=== PATIENT | female | born 1965 | race Caucasian/White ===

== ENCOUNTER 2016-06-12 15:50 | Outpatient (CLI) ==
[2016-06-12 17:01] LABS: BASOPHILS % (AUTO) 0.5 % (0.0-3.0); EOSINOPHILS # (AUTO) 0.1 K/ul (0.0-0.7); HEMATOCRIT 39.6 % (37.0-47.0); HEMOGLOBIN 13.6 g/dl (12.0-16.0); IMMATURE GRANULOCYTE % (AUTO) 0.2 % (0.0-5.0); LYMPHOCYTES # (AUTO) 0.8 K/uL (0.60-3.4); LYMPHOCYTES % (AUTO) 13.9 (10.0-50.0); MEAN CORPUSCULAR HGB CONC 34.3 (31.8-35.4); MEAN CORPUSCULAR VOLUME 84.4 fl (81.0-99.0); MONOCYTES # (AUTO) 0.4 K/uL (0.4-2.0); NEUTROPHILS # (AUTO) 4.1 K/ul (2.0-6.9); NEUTROPHILS % (AUTO) 75.4; PLATELET COUNT 222 10^3/uL (140-440); RED BLOOD COUNT 4.69 10^6/ul (4.20-5.40); WHITE BLOOD COUNT 5.48 K/ul (4.6-10.2)
[2016-06-12 17:11] LABS: FLU INTERNAL QC INTERNAL QC VALID
[2016-06-12 17:12] LABS: RAPID FLU A POSITIVE (NEGATIVE); RAPID FLU B NEGATIVE (NEGATIVE)
[2016-06-12 17:14] LABS: ALBUMIN 4.1 g/dL (3.4-5.0); ALBUMIN/GLOBULIN RATIO 0.95; ANION GAP 14.6; BILIRUBIN,TOTAL 0.46 mg/dL (0.00-1.20); BUN/CREATININE RATIO 16.21; CALCIUM 9.2 mg/dL (8.2-10.2); CHOL/HDL RATIO 5.9 (4.5-5.5); CREATININE 0.74 mg/dL (0.60-1.30); POTASSIUM 3.6 mmol/L (3.5-5.10); TOTAL PROTEIN 8.4 g/dL (6.4-8.2)
== END 2016-06-12 15:51 | disposition home or self-care (01) ==
LOC: LAB 15:50
PROVIDERS: ATTEND Nurse Practitioner Family
DX: J02.9 Acute pharyngitis, unspecified (principal); R52 Pain, unspecified; I10 Essential (primary) hypertension; E78.5 Hyperlipidemia, unspecified; E78.1 Pure hyperglyceridemia; E11.9 Type 2 diabetes mellitus without complications
CPT/HCPCS: 36415; 80053; 80061; 83036; 85025; 87651; 87804; 87880

== ENCOUNTER 2017-02-15 12:24 | Outpatient (CLI) ==
[2017-02-15 13:24] LABS: ALBUMIN 3.6 g/dL (3.4-5.0); ALBUMIN/GLOBULIN RATIO 0.88; ANION GAP 12.6; BILIRUBIN,TOTAL 0.62 mg/dL (0.00-1.20); BUN/CREATININE RATIO 17.14; CALCIUM 9.3 mg/dL (8.2-10.2); CHOL/HDL RATIO 5.6 (4.5-5.5); CREATININE 0.7 mg/dL (0.60-1.30); POTASSIUM 3.6 mmol/L (3.5-5.10); TOTAL PROTEIN 7.7 g/dL (6.4-8.2)
== END 2017-02-15 12:25 | disposition home or self-care (01) ==
LOC: LAB 12:24
PROVIDERS: ATTEND Nurse Practitioner Family
DX: Z00.00 Encounter for general adult medical examination without abnormal findings (principal); E11.9 Type 2 diabetes mellitus without complications; I10 Essential (primary) hypertension; E78.1 Pure hyperglyceridemia; E78.5 Hyperlipidemia, unspecified
CPT/HCPCS: 36415; 80053; 80061; 83036; 84443

== ENCOUNTER 2017-05-20 13:05 | Outpatient (CLI) | END 2017-05-20 13:06 | disposition home or self-care (01) | LOC: LAB 13:05 | PROVIDERS: ATTEND Nurse Practitioner Family | DX: E11.9 Type 2 diabetes mellitus without complications (principal); I10 Essential (primary) hypertension; E78.1 Pure hyperglyceridemia; E78.5 Hyperlipidemia, unspecified | CPT/HCPCS: 36415; 80053; 80061; 83036 ==

== ENCOUNTER 2017-07-17 11:20 | Outpatient (CLI) ==
--- NOTE | 2017-07-17 13:02 | CT ---
Exam: CT abdomen pelvis without intravenous contrast. Comparison: 05/02/2009. Reason for exam: Generalized abdominal pain. FINDINGS: No pleural effusion, or focal consolidation in the partially imaged lung bases. There is mild ground-glass in the left lung base. Image interpretation is limited by the lack of intravenous contrast administration. The liver is lower in attenuation in the spleen. The gallbladder, spleen, pancreas, and adrenal glands appear grossly unremarkable within limitations of a noncontrasted study. No hydronephrosis, hydroureter, or nephrolithiasis is seen in either kidney. The bladder is incompletely evaluated secondary to non distension without obvious wall thickening. No focal small bowel dilatation or transition point. Fluid-filled loops of small bowel are seen throughout the abdomen. The appendix is not definitively seen. No inflammatory changes are seen in the expected location of the appendix. No intra-abdominal free air or pelvic free fluid. There is minimal atherosclerotic disease in the aorta. The pelvic structures appear grossly unremarkable. Degenerative disease is seen in the lumbosacral spine with intervertebral body disc space height narr owing and straightening of the lumbar lordotic curve. Impression: 1. No acute inflammatory findings are seen within the abdomen or pelvis. 2. Hepatic steatosis. 3. The previously described hepatic lesion is not well seen on the noncontrasted evaluation. 4. Fluid-filled loops of nondilated small bowel may be physiologic but may also represent a mild ent eritis.
== END 2017-07-17 11:21 | disposition home or self-care (01) ==
LOC: RAD 11:20
PROVIDERS: ATTEND Emergency Medicine
DX: R10.84 Generalized abdominal pain (principal); K52.9 Noninfective gastroenteritis and colitis, unspecified
CPT/HCPCS: 36415; 80053; 85025

== ENCOUNTER 2017-09-13 12:35 | Outpatient (CLI) | END 2017-09-13 12:36 | disposition home or self-care (01) | LOC: LAB 12:35 | PROVIDERS: ATTEND Nurse Practitioner Family | DX: E11.9 Type 2 diabetes mellitus without complications (principal); I10 Essential (primary) hypertension; E78.5 Hyperlipidemia, unspecified; E78.1 Pure hyperglyceridemia | CPT/HCPCS: 36415; 80053; 80061; 83036; 85025 ==

== ENCOUNTER 2018-02-01 11:02 | Outpatient (CLI) | END 2018-02-01 11:03 | disposition home or self-care (01) | LOC: LAB 11:02 | PROVIDERS: ATTEND Nurse Practitioner Family | DX: E78.1 Pure hyperglyceridemia (principal); E11.9 Type 2 diabetes mellitus without complications | CPT/HCPCS: 36415; 80053; 80061; 83036 ==

== ENCOUNTER 2018-04-25 14:59 | Outpatient (CLI) ==
--- NOTE | 2018-04-26 08:55 | MRI ---
EXAM: MRI of the right elbow without contrast COMPARISON: Right elbow radiographs 03/31/2018. HISTORY: Elbow pain following a fall a few months ago. TECHNIQUE: Multiplanar noncontrast MR images of the right elbow were acquired using a 1.2 Susan magn et. FINDINGS: Mild to moderate degenerative changes of the radiocapitellar and ulnohumeral articulations . There is mild chronic deformity of the articular surface of the radial head, favoring sequela of o ld trauma without evidence of an acute fracture at that site. There is a small elbow effusion withou t a definite osteochondral body. Moderate triceps tendinosis with some edema throughout the overlying soft tissues though without a fu ll-thickness tendon tear or tendon retraction. Mild to moderate biceps tendinosis without a tendon t ear. The distal brachialis tendon is intact. There is marked common extensor tendinosis with a partial-thickness tear involving the common extenso r tendon at its lateral epicondyle attachment with some edema throughout the overlying soft tissues. Strain/contusion of the common extensor muscle wad posteriorly. Small lateral epicondyle bone spur. There is a mild common flexor tendinosis with minimal edema throughout the overlying soft tissues wit hout a full-thickness tendon tear. Low grade strain/contusion of the common flexor muscle wad fundraising sale representative iorly and proximally. The ulnar nerve is located within the cubital tunnel and is grossly unremarkab le appearance. Subcutaneous edema posteriorly without a drainable fluid collection. There is scarring of the lateral collateral ligament proximally its humeral attachment suggesting seq uela of a chronic sprain/partial tear without a full-thickness tear on this non arthrographic study. No evidence of a full-thickness tear of the ulnar collateral ligament on this non arthrographic stud y. Mild diffuse muscle atrophy. IMPRESSION: 1. Mild chronic deformity of the radial head, favoring sequela of old trauma without acute fracture at that site. Mild to moderate osteoarthrosis. Small elbow effusion, nonspecific. 2. Distal triceps and biceps tendinosis without a full-thickness tendon tear or tendon retraction. Subcutaneous edema posteriorly. Mild muscle atrophy. 3. Lateral epicondylitis with marked tendinosis with partial tear of the common extensor tendon at i ts lateral epicondyle attachment related to acute on chronic changes of the lateral epicondylitis. E denise throughout the overlying soft tissues without a full-thickness tendon tear. 4. Minimal changes of medial epicondylitis without a tendon tear. 5. Chronic sprain/partial tear with scarring of the radial collateral ligament without a full-thickn ess tear on this non arthrographic study.
== END 2018-04-25 15:00 | disposition home or self-care (01) ==
LOC: RAD 14:59
PROVIDERS: ATTEND Nurse Practitioner Family
DX: M25.521 Pain in right elbow (principal); G89.29 Other chronic pain; Z98.890 Other specified postprocedural states; W19.XXXA Unspecified fall, initial encounter

== ENCOUNTER 2018-06-02 09:58 | Outpatient (RCR) ==
--- NOTE | 2018-06-02 14:16 | RS.OPPTEV2 ---
Date of Note: 06/02/18 Visit #: 1 Number of visits approved by Insurance: n/a Date of Evaluation: 06/02/18 Payer Source: Insurance Surgery Performed?: No Treatment Diagnosis: lateral epicondylitis R elbow History of Condition/Mechanism of Injury:: pt states she suffered a fall striking her R elbow on concrete sidewalk in 08/2017. States she has had pain ever since. Reports she got a band to wear for lat epicondylitis and it has helped her be able to function. 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 States without wearing her band she cannot even pull covers up on her at night using R hand. Treatment Side (optional): Right *Precautions: n/a Medical History Medical History: Hypertension, Diabetes, Arthritis Surgical History Comments:: thyroid tumor removed, tubal ligation Smoking Status: Never smoker Hx Home Medications: januvia, metformin, hyzar Patient's Goals: decrease pain Pain Assessment - Pain Description Pain Location: R lat elbow Pain Description: Burning, Sharp, Throbbing Current Pain Intensity: 2 Worst Pain Intensity: 7 Functional Outcome Measure UE Functional Index: 45 (44%) - G Codes & Severity Modifier G Codes & Modifier: n/a Source of G Code score: n/a Observation - Observation Inspection: pt with slight edema noted in R lat elbow in area of lat epicondyle Posture: Forward Head, Rounded Shoulders, Increased Thoracic Kyphosis Handedness: Right Gait - Gait Pattern General Gait Pattern Observation: No Deviations/Normal General Range of Motion: LUE WFL's. BLE WFL's. RUE WFL's with pain with R elbow ROM Muscle Strength: LUE 5/5. BLE 5/5. RUE shld flex 5/5, elbow (see elbow eval) Elbow ROM: Bilaterally WFL's Elbow Muscle Strength: Left WFL's - Right Elbow Strength Right Elbow Extension: 4- Good- Right Elbow Flexion: 4 Good Right Forearm Pronation: 4- Good- Right Forearm Supination: 4- Good- Sky Line Yarder Strength Left Hand Sky Line Yarder Strength: 46# Right Hand Sky Line Yarder Strength: 27# Dynamometer Testing Position: 3rd Position Palpation Palpation Findings: Tenderness Comments:: tenderness to palpation R lat elbow over lat epicondyle Sensation - Sensation Right Upper Extremity: Intact/Normal Left Upper Extremity: Intact/Normal Right Lower Extremity: Intact/Normal Left Lower Extremity: Intact/Normal Balance - Sitting Balance Static Sitting Balance: Normal Dynamic Sitting Balance: Normal - Standing Balance Static Standing Balance: Normal Dynamic Standing Balance: Normal - Heat/Cryotherapy Treatment: Cryotherapy Comments:: R elbow Interventions - Exercise/Activities/Manual Therapy Exercises/Activities: pt performed wrist flex stretch, wrist ext stretch, forearm pronation/supination, wrist flex with weight, elbow flex/ext Manual Therapy: n/a HOME EXERCISE PROGRAM: pt given written HEP including wrist flex stretch, wrist ext stretch, forearm pronation/supination, wrist flex/ext with weight, elbow flex/ext. - Charges Timed Code Treatment Minutes: 48 Total Treatment Time: 53 Procedures billed for this date of service:: eval low ex EVALUATION COMPLEXITY LEVEL EVALUATION COMPLEXITY LEVEL: HISTORY: Low, EXAM OF BODY SYSTEMS: Low, CLINICAL PRESENTATION: Low, CLINICAL DECISION MAKING: Low Assessment Assessment: pt presents with lat epicondylitis R elbow. pt with swelling R elbow and pain with ROM. Decreased strength R elbow and hand. Patient Education: Home Exercise Program, Education of Plan of Care Rehab Potential: Good Hemodialysis Charge Nurse Goals Goal #1: pt independent with HEP Goal to be met by: 06/13/18 Goal #2: pt report decreased pain in R elbow with normal activities Goal to be met by: 06/13/18 Goal #3: Improve strength R windows systems architect by 5# Goal to be met by: 06/13/18 Plan - Treatment to be Provided Procedures: Therapeutic Exercises, Manual Therapy, Massage, Patient Education Modalities: Cryotherapy - Treatment Plan Frequency: 1 X week Duration: 2 weeks Dates of [facility] Goals: 06/13/18 Expiration date of current Insurance Approval:: n/a - Treatment Code (1) Right lateral epicondylitis Code(s): M77.11 - LATERAL EPICONDYLITIS, RIGHT ELBOW (2) Right elbow pain Code(s): M25.521 - PAIN IN RIGHT ELBOW (3) Effusion, right elbow Code(s): M25.421 - EFFUSION, RIGHT ELBOW (4) Muscle weakness Code(s): M62.81 - MUSCLE WEAKNESS (GENERALIZED)
== END 2018-06-19 23:59 ==
PROVIDERS: ATTEND Orthopaedic Surgery
DX: M77.11 Lateral epicondylitis, right elbow (principal)

== ENCOUNTER 2018-08-06 07:23 | Outpatient (CLI) | END 2018-08-06 07:24 | disposition home or self-care (01) | LOC: LAB 07:23 | PROVIDERS: ATTEND Nurse Practitioner Family | DX: E11.9 Type 2 diabetes mellitus without complications (principal); I10 Essential (primary) hypertension; E78.5 Hyperlipidemia, unspecified; E78.1 Pure hyperglyceridemia | CPT/HCPCS: 36415; 80053; 80061; 83036 ==